=== PATIENT | female | born 1960 | race African-American/Black ===

== ENCOUNTER 2018-07-15 01:46 | Emergency (ER) | payer SELFPAY | END 2018-07-15 02:06 | disposition home or self-care (01) | LOC: ERS 01:46 | DX: K08.89 Other specified disorders of teeth and supporting structures (principal); E11.9 Type 2 diabetes mellitus without complications; F32.9 Major depressive disorder, single episode, unspecified; Z79.84 Long term (current) use of oral hypoglycemic drugs; Z79.899 Other long term (current) drug therapy | CPT/HCPCS: 99282 ==